=== PATIENT | female | born 1990 | race Caucasian/White ===

== ENCOUNTER 2018-08-21 01:20 | Day surgery (SDC) | payer MEDICAID ==
[~2018-08-21] VITALS: Ht 177.8 cm; Wt 61.7 kg
[~2018-08-21 01:20] MED LIST: ACET-1966 PO; AMOX-559 PO; BACDS PO; CLI150 PO; ESC10 PO; ETON68IM SQ; IBUP-56 PO; MED150I INJ; MULT-1335 PO; PREN-127 PO; TRA50 PO; VALE250C2 PO
[2018-08-21 07:30] VITALS: BP 108/50
[2018-08-21] MEDS ORDERED: SCOPOLAMINE 1.5 MG PATCH TD ONE ×2 (07:45→08:25)
[2018-08-21] MEDS ORDERED: fentaNYL CITR 100 MCG/2 ML AMP ONE (07:53)
[2018-08-21] MEDS ORDERED: PROPOFOL EMUL(*) 10MG/ML 20 ML 20 ML ONE (07:55)
[2018-08-21] MEDS ORDERED: LIDOCAINE MPF 1% 5 ML VIAL ONE (07:55)
[2018-08-21 08:06] LABS: PLATELET COUNT, AUTOMATED 265 K/uL (150-450)
[2018-08-21] MEDS ORDERED: MIDAZOLAM 2 MG/2 ML VIAL IVP PRN (08:25)
[2018-08-21] MEDS ORDERED: NORMOSOL R SOLN(*) 1000 ML BAG 1,000 ML IV PRN (08:25)
[2018-08-21] MEDS ORDERED: LIDOCAINE/SOD BICARB 8.4% SYR ID ONE (08:25)
[2018-08-21] MEDS ORDERED: FAMOTIDINE 20 MG TAB PO ONE (08:25)
[2018-08-21] MEDS ORDERED: ROPIVACAINE 0.2% 20 ML VIAL ONE (09:29)
[2018-08-21] MEDS ORDERED: DEXAMETHASONE SOD 4 MG/ML VIAL ONE (09:55)
[2018-08-21] MEDS ORDERED: ONDANSETRON 4 MG/2 ML VIAL ONE (09:55)
[2018-08-21] MEDS ORDERED: LIDO/EPI 2% MPF 1:200,000 20ML ONE (10:12)
[2018-08-21] MEDS ORDERED: LR(*) 1000 ML BAG 1,000 ML IV ONE (11:28)
--- NOTE | 2018-08-21 11:28 | Post Operative Note ---
Operative Note - FLOOR PERSON Operative Day Date: Aug 21, 2018 Time: 11:26 Physicians Surgeon: Ryan Anesthesia: Gen LMA Diagnosis Pre-Op Diagnosis: left labial hypertrophy non-healing surgical wound T4 parapaligic Post-Op Diagnosis: same Procedure Procedure(s): surgical debridement of wound Left labiaplasty Specimen Removed:(Maybe N/A): #[id number] Complications: none Fluids Fluids: 1000 ml Estimated Blood Loss: minimal Dictated Date OP Note Dictated: Aug 21, 2018 Time OP Note Dictated: 11:28 Copies to: GRACIELA CUEVAS MD ; GRACIELA CUEVAS MD Aug 21, 2018 11:28
[2018-08-21] MEDS ORDERED: LOR5/325 PO (11:30)
[2018-08-21] MEDS ORDERED: APAP/HYDROCODONE 325/5 TAB PO PRN (11:30)
--- NOTE | 2018-08-21 11:34 | Short(Outpt) Discharge Summary ---
Discharge Summary Reason for Hosp/Final Diag: (1) Surgical wound, non healing Hospital Course & Plan: s/p surgical wound debridement (2) Labia minora hypertrophy Hospital Course & Plan: left labiaplasty Departure Discharge to: Home, Self Care Discharge Instructions Home Meds Active Scripts Hydrocodone Bit/Acetaminophen (HYDROCODON-ACETAMINOPHEN 5-325) 1 Each Tablet, 1 EACH PO Q4-6H PRN for PAIN, #14 TAB 0 Refills Prov:GRACIELA CUEVAS MD 08/21/18 Reported Medications Vits W-Ca,Fe,Fa(<1MG) ( VITAMINS) 1 Each Tablet, 1 EACH PO DAILY, TAB 08/15/18 Escitalopram Oxalate (LEXAPRO) 10 Mg Tab, 10 MG PO DAILY, TAB 08/15/18 Ibuprofen (IBUPROFEN) 200 Mg Tablet, 2 TAB PO PRN PRN for PAIN 02/25/14 Discontinued Reported Medications Multivitamin With Minerals (MULTIPLE VITAMIN) 1 Each Tablet, 1 EACH PO DAILY 03/11/14 Acetaminophen (TYLENOL) 325 Mg Tablet, 325 MG PO Q4H PRN 03/11/14 Valerian Root (VALERIAN ROOT) Unknown Strength Capsule, PO QDAY, CAPSULE 02/25/14 Etonogestrel (NEXPLANON) 68 Mg Implant, 68 MG SQ Q3 YEARS 02/25/14 Follow up Referrals: MAMMOGRAPHY TECHNOLOGIST - In Two Weeks @ [facility] with GRACIELA CUEVAS MD Diet: Regular Activity: As Tolerated Copies to: GRACIELA CUEVAS MD ; Problem Qualifiers (1) Surgical wound, non healing: Encounter type: sequela Qualified Codes: T81.89XS - Other complications of procedures, not elsewhere classified, sequela GRACIELA CUEVAS MD Aug 21, 2018 11:34
--- NOTE | 2018-08-21 12:17 | OPERATIVE REPORT 1 ---
EVENT DATE: August 21, 2018 SURGEON: Chase Davis MD ANESTHESIOLOGIST: Danial Morris MD ANESTHESIA: General LMA. PREOPERATIVE DIAGNOSIS 1. Nonhealing surgical wound of left labia minora, status post spontaneous vaginal delivery. 2. T4 paraplegic. 3. Left labial hypertrophy. POSTOPERATIVE DIAGNOSIS 1. Nonhealing surgical wound of left labia minora, status post spontaneous vaginal delivery. 2. T4 paraplegic. 3. Left labial hypertrophy. PROCEDURE PERFORMED 1. Surgical wound debridement. 2. Left labioplasty utilizing Z-plasty technique. ESTIMATED BLOOD LOSS Minimal. FLUIDS 1L IV crystalloid, urine output. DRAINS Prior to the procedure. FINDINGS Left labial hypertrophy secondary to her paraplegic constant irritation and pulling on the left labia. She did suffer a medial labial laceration on her vaginal delivery that underwent repair but she had disruption of this surgical wound with subsequent pain and discomfort. PROCEDURE IN DETAIL The patient was brought to the operating room with a working IV and placed in the dorsal supine position. On the operating table, she was placed under LMA anesthesia and moved to the dorsal lithotomy position. She was then prepped and draped in the usual sterile fashion. The left labia was examined and extended to its full extent and demarcated along the planned surgical wound debridement and labioplasty. Z-plasty technique was utilized on both the medial and external surface of this left labia with a goal to bring the upper third of the left labia minora down to the lower third of the left labia and suturing the skin in between, removing the largest portion of this labial hypertrophy. The area, once demarcated, was infiltrated with 2% Marcaine with epinephrine and using a #15 blade scalpel a Z-plasty incision was made along the medial side of the left labia. This was continued on the outer surface in a mirroring type incision technique and then the remaining labia was excised. Electrocautery was used for hemostasis and a few internal stitches for hemostasis were placed of 3- 0 Chromic. Once hemostasis was satisfactory, space was closed and tissue was approximated near their corresponding edges utilizing 3-0 Chromic and single interrupted stitches. Once this had been adequately approximated and no visible bleeders were observed, a fresh 3-0 Chromic was used to suture the skin in a running locking fashion along its entire length medially and around to the external side and up its completion. There was excellent reapproximation of the skin edges and denominational of normal anatomy. Upon completion, there were no visible bleeders and no complications. She was given 2 grams of Mefoxin IV for antibiotic prophylaxis. She tolerated the procedure well and was returned to PACU in stable condition. STEFAN
[2018-08-21 12:29] VITALS: BP 116/75
[2018-08-21 13:03] VITALS: BP 108/57
[2018-08-21 13:22] VITALS: BP 106/75
== END 2018-08-21 12:29 | disposition home or self-care (01) ==
LOC: OR 01:20
PROVIDERS: ATTEND Obstetrics & Gynecology
DX: T81.89XA Other complications of procedures, not elsewhere classified, initial encounter (principal); N90.60 Unspecified hypertrophy of vulva; G82.20 Paraplegia, unspecified
CPT/HCPCS: 56620; 84703; 85025; 88305; J0694; J1100; J2001; J2405; J2704; J3010; J2795